=== PATIENT | male | born 1965 | race Caucasian/White ===

== ENCOUNTER → 2021-01-27 10:48 | Outpatient (BNVA) | payer OTHER, SELFPAY | PROVIDERS: Family Provider Nurse Practitioner; PCP Nurse Practitioner; Visit Provider Nurse Practitioner Family | DX: Z20.822 Contact with and (suspected) exposure to COVID-19 (principal) | CPT/HCPCS: 87635 ==

== ENCOUNTER → 2021-02-21 09:40 | Outpatient (BNVA) | payer OTHER, SELFPAY | PROVIDERS: Family Provider Nurse Practitioner; PCP Nurse Practitioner; Visit Provider Nurse Practitioner | DX: Z00.00 Encounter for general adult medical examination without abnormal findings (principal); Z12.5 Encounter for screening for malignant neoplasm of prostate | CPT/HCPCS: 80053; 80061; 81000; G0103 ==

== ENCOUNTER → 2022-01-20 09:20 | Outpatient (BNVA) | payer OTHER, SELFPAY | PROVIDERS: Family Provider Nurse Practitioner; PCP Nurse Practitioner; Visit Provider Nurse Practitioner Family | DX: M25.561 Pain in right knee (principal); M25.461 Effusion, right knee; M25.661 Stiffness of right knee, not elsewhere classified; S89.91XA Unspecified injury of right lower leg, initial encounter; X58.XXXA Exposure to other specified factors, initial encounter | CPT/HCPCS: 73562 ==

== ENCOUNTER 2022-02-09 12:19 | Outpatient (CLI) | payer OTHER, SELFPAY ==
--- NOTE | 2022-02-09 13:00 | MR_ITS ---
WS: [id number] MRI RIGHT KNEE HISTORY: M25.561 - Pain in right knee COMPARISON: Radiograph 01/20/2022 Anterior cruciate ligament: Increased T2 signal throughout the ACL. Mild mucoid degeneration. No full -thickness tear is identified. A partial tear distally cannot be excluded as there is thinning of the fibers along the posterior band. Posterior cruciate ligament: Intact. Medial collateral ligament: No tear. Small amount of edema adjacent to the MCL. Posterior lateral corner structures: Intact. Medial menisci: Abnormal signal in the posterior horn towards the body and free edge. Consistent with a full-thickness radial tear extending to both the superior and inferior articular surfaces. There i s additional intrasubstance degeneration extending towards the meniscal root with fraying along the s urfaces. Lateral meniscus: Intrasubstance degeneration in the posterior horn towards the meniscal root but no full-thickness tear. Extensor mechanism: Distal quadriceps tendon and patellar tendons are intact. Fluid and soft tissue: Large suprapatellar joint effusion. Large Neumann's cyst. Neumann's cyst extends o loc length of at least 6.7 cm. There is a small amount of edema surrounding the Neumann's cyst suggesti ng partial rupture or an inflammatory reaction to the cyst. Osseous and articular structures: Patellofemoral compartment: No significant cartilage defect. Normal position of the patella. No marro w abnormality. Medial compartment: Mild narrowing of the medial compartment. Superficial loss of the normal cartilag e along the femoral condyle and tibial plateau. No marrow edema. Lateral compartment: Mild narrowing of the lateral compartment with minimal fissuring and thinning of the cartilage. No full-thickness cartilage defect. MR/MR knee RT wo con* [id number] IMPRESSION: 1. Large suprapatellar effusion. 2. Large Neumann's cyst. Edema adjacent to the Neumann's cyst may represent partia l rupture or an inflammatory response. 3. Radial tear posterior horn medial meniscus. Additional advanced intrasubsta nce degeneration at the meniscal root. Additional tear at the meniscal root may be present. 4. Mucoid degeneration of the ACL. Thinning of the posterior band. Partial tea r is not excluded involving the posterior band. 5. Mild narrowing of the medial lateral compartments. 6. Superficial loss of cartilage in the medial compartment involving the femor al condyle and tibial plateau.
== END 2022-02-09 12:20 | disposition home or self-care (01) ==
LOC: RAD 12:20
PROVIDERS: Family Provider Nurse Practitioner; PCP Nurse Practitioner; Visit Provider Nurse Practitioner Family
DX: M25.461 Effusion, right knee (principal); M25.661 Stiffness of right knee, not elsewhere classified; M71.21 Synovial cyst of popliteal space [Baker], right knee; S83.241A Other tear of medial meniscus, current injury, right knee, initial encounter; X58.XXXA Exposure to other specified factors, initial encounter
CPT/HCPCS: 73721